=== PATIENT | female | born 1970 | race African-American/Black ===

== ENCOUNTER 2018-06-17 21:42 | Emergency (ER) | payer OTHER ==
[~2018-06-17] VITALS: Ht 149.9 cm; Wt 88.9 kg
[~2018-06-17 21:42] MED LIST: APAP500 PO; COLACE 100 MG100 MG PO; DERMOPLAST SPRA56 ML; HYDROCORTISONE; IBUPROFEN 800800 M1 PO; IBUPROFEN IB200 MG; IRON325 PO; LANOLIN; PRENATAL PO; TUCKS MEDICATE1 EAC1; TUSSIONEX PENN473 ML PO
[2018-06-17 23:48] VITALS: BP 116/52
== END 2018-06-17 23:48 | disposition home or self-care (01) ==
LOC: ER 21:42
DX: R51 Headache (principal); Z98.890 Other specified postprocedural states

== ENCOUNTER 2019-04-01 21:02 | Emergency (ER) | payer OTHER ==
[~2019-04-01] VITALS: Ht 152.4 cm; Wt 88.9 kg
[2019-04-01] MEDS ORDERED: NORETHIND-ETH1 EACH PO (21:51)
[2019-04-01 22:32] LABS: ABSOLUTE NEUTROPHILS 2.2 thou/uL (1.4-8.2); BASOPHILS 0.9 % (0.0-2.0); EOSINOPHILS 2.4 % (0.0-3.0); HEMATOCRIT 35.8 % (37.0-47.0); HEMOGLOBIN 11.6 gm/dL (12.0-15.0); LYMPHOCYTES 44.7 % (24.0-44.0); MCH 27.5 pg (26.0-34.0); MCHC 32.3 g/dL (28.0-37.0); MCV 85.3 fL (80.0-100.0); PLATELET COUNT 220 thou/uL (150-400); RDW 13.8 % (10.5-14.5); WBC 4.7 thou/uL (4.0-11.0)
[2019-04-01 22:41] LABS: CALCIUM 8.2 mg/dL (8.5-10.1); CREATININE 0.8 mg/dL (0.6-1.0); POTASSIUM 3.9 mmol/L (3.5-5.1)
[2019-04-01 22:44] LABS: URINE BILIRUBIN NEGATIVE (Negative); URINE BLOOD 2+ (Negative); URINE CLARITY CLEAR; URINE COLOR YELLOW; URINE GLUCOSE-RANDOM* NEGATIVE (Negative); URINE KETONES NEGATIVE (Negative); URINE LEUKOCYTES-REFLEX NEGATIVE (Negative); URINE NITRITE-REFLEX NEGATIVE (Negative); URINE PROTEIN (DIPSTICK) NEGATIVE (Negative); URINE UROBILINOGEN 0.2 E.U./dl (0.2-1.0)
[2019-04-01 22:47] LABS: ALBUMIN 3.2 g/dL (3.4-5.0); TOTAL BILIRUBIN 0.2 mg/dL (<0.1-1.0); TOTAL PROTEIN 6.7 g/dL (6.4-8.2)
[2019-04-01 23:25] LABS: BACTERIA-REFLEX None Seen /HPF (None Seen); CASTS None Seen /LPF (None Seen); CRYSTALS None Seen /LPF (None Seen); MUCUS None Seen strn/LPF (None Seen); SQUAMOUS None Seen /LPF (0-3); URINE RBC 0-2 Rare /HPF (0-2); URINE WBC-REFLEX None Seen /HPF (0-5)
[2019-04-02] MEDS ORDERED: BENTYL 10 MG CA10 M1 PO (00:53)
[2019-04-02 01:07] VITALS: BP 121/72
== END 2019-04-02 01:08 | disposition home or self-care (01) ==
LOC: ER 21:02
PROVIDERS: Emergency Medicine Emergency Medical Services
DX: R10.31 Right lower quadrant pain (principal); R10.32 Left lower quadrant pain; Z90.10 Acquired absence of unspecified breast and nipple

== ENCOUNTER 2019-06-18 12:09 | Emergency (ER) | payer OTHER ==
[~2019-06-18] VITALS: Ht 152.4 cm; Wt 89.8 kg
[~2019-06-18 12:09] MED LIST changes: +BENTYL 10 MG CA10 M1 PO; +NORETHIND-ETH1 EACH PO
[2019-06-18 12:51] LABS: EOSINOPHILS 1.9 % (0.0-3.0); HEMATOCRIT 43.1 % (37.0-47.0); HEMOGLOBIN 14.7 gm/dL (12.0-15.0); LYMPHOCYTES 33.7 % (24.0-44.0); MCH 28.5 pg (26.0-34.0); MCV 83.8 fL (80.0-100.0); MONOCYTES 5.2 % (1.0-8.0); PLATELET COUNT 270 thou/uL (150-400); POLYS 58.2 % (36.0-66.0); RBC 5.14 mil/uL (4.20-5.00); RDW 13.6 % (10.5-14.5); WBC 5.2 thou/uL (4.0-11.0)
[2019-06-18 12:58] LABS: CALCIUM 9.3 mg/dL (8.5-10.1); POTASSIUM 3.7 mmol/L (3.5-5.1)
[2019-06-18 13:06] LABS: ALBUMIN 3.7 g/dL (3.4-5.0); TOTAL BILIRUBIN 0.4 mg/dL (<0.1-1.0); TOTAL PROTEIN 7.8 g/dL (6.4-8.2)
[2019-06-18 14:04] LABS: URINE BILIRUBIN NEGATIVE (Negative); URINE BLOOD TRACE (Negative); URINE CLARITY CLEAR; URINE COLOR YELLOW; URINE GLUCOSE-RANDOM* NEGATIVE (Negative); URINE KETONES NEGATIVE (Negative); URINE LEUKOCYTES-REFLEX NEGATIVE (Negative); URINE NITRITE-REFLEX NEGATIVE (Negative); URINE PROTEIN (DIPSTICK) NEGATIVE (Negative); URINE SPECIFIC GRAVITY 1.015 (1.005-1.035); URINE UROBILINOGEN 0.2 E.U./dl (0.2-1.0)
[2019-06-18] MEDS ORDERED: NORCO 5-325 TA1 EAC1 PO (14:08)
[2019-06-18 15:03] VITALS: BP 127/52
== END 2019-06-18 15:15 | disposition home or self-care (01) ==
LOC: ER 12:09
PROVIDERS: Emergency Medicine Emergency Medical Services
DX: R10.31 Right lower quadrant pain (principal); R10.32 Left lower quadrant pain; Z20.828 Contact with and (suspected) exposure to other viral communicable diseases; Z79.899 Other long term (current) drug therapy

== ENCOUNTER 2019-10-13 19:27 | Emergency (ER) | payer OTHER ==
[~2019-10-13] VITALS: Ht 149.9 cm; Wt 93.4 kg
[~2019-10-13 19:27] MED LIST changes: +NORCO 5-325 TA1 EAC1 PO
[2019-10-13 20:05] LABS: ABSOLUTE NEUTROPHILS 2.4 thou/uL (1.4-8.2); BASOPHILS 0.1 % (0.0-2.0); EOSINOPHILS 1.4 % (0.0-3.0); HEMATOCRIT 35.5 % (37.0-47.0); HEMOGLOBIN 11.9 gm/dL (12.0-15.0); MCH 28.6 pg (26.0-34.0); MCHC 33.5 g/dL (28.0-37.0); MCV 85.3 fL (80.0-100.0); MONOCYTES 8.7 % (1.0-8.0); PLATELET COUNT 248 thou/uL (150-400); POLYS 48.8 % (36.0-66.0); RBC 4.16 mil/uL (4.20-5.00); RDW 13.4 % (10.5-14.5); WBC 4.9 thou/uL (4.0-11.0)
[2019-10-13 20:27] LABS: ANION GAP 7 mmol/L (7-16); BUN 18 mg/dL (7-18); CALCIUM 8.6 mg/dL (8.5-10.1); CHLORIDE 104 mmol/L (98-107); CO2 26 mmol/L (21-32); GLUCOSE 90 mg/dL (74-106); POTASSIUM 4.3 mmol/L (3.5-5.1); SODIUM 137 mmol/L (136-145)
[2019-10-13 20:35] LABS: TROPONIN-I <0.06 ng/mL (<0.06)
[2019-10-13 21:23] VITALS: BP 131/83
--- NOTE | 2019-10-16 08:08 | EKG ---
[facility] [place] [address] ELECTROCARDIOGRAM REPORT Name: JO-ANN AMANDA Room #: 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: [facility] : 1970 Requested By: Venu Roa Order Number: [id number] MD: Bryce Gamboa Measurements Intervals [place] Rate: 85 P: -36 AR: 126 QRS: 15 QRSD: 90 T: 34 QT: 354 QTc: 421 Interpretive Statements Sinus rhythm Borderline T abnormalities, anterior leads Baseline wander in lead(s) II,III,aVF,V6 Compared to ECG 02/08/2016 19:31:20 No significant change was found Electronically Signed On 10-16-2019 8:08:30 CDT by Bryce Gamboa [email or web address] <ELECTRONICALLY SIGNED> By: Bryce Gamboa MD, [facility] 10/16/19807 34 34 Bryce Gamboa MD, FAC /EPI
== END 2019-10-13 21:28 | disposition home or self-care (01) ==
LOC: ER 19:27
PROVIDERS: Emergency Medicine
DX: S29.011A Strain of muscle and tendon of front wall of thorax, initial encounter (principal); E66.9 Obesity, unspecified; Z79.899 Other long term (current) drug therapy; Z90.89 Acquired absence of other organs; X50.0XXA Overexertion from strenuous movement or load, initial encounter; Y93.89 Activity, other specified; Y92.69 Other specified industrial and construction area as the place of occurrence of the external cause; Y99.9 Unspecified external cause status

== ENCOUNTER 2019-10-15 00:06 | Emergency (ER) | payer OTHER ==
[~2019-10-15] VITALS: Ht 170.2 cm; Wt 93.4 kg
[2019-10-15 00:45] LABS: ABSOLUTE NEUTROPHILS 2.5 thou/uL (1.4-8.2); EOSINOPHILS 1.9 % (0.0-3.0); HEMATOCRIT 36.2 % (37.0-47.0); HEMOGLOBIN 12.1 gm/dL (12.0-15.0); LYMPHOCYTES 37.1 % (24.0-44.0); MCH 28.6 pg (26.0-34.0); MCHC 33.5 g/dL (28.0-37.0); MCV 85.5 fL (80.0-100.0); MONOCYTES 6.8 % (1.0-8.0); PLATELET COUNT 257 thou/uL (150-400); POLYS 53.2 % (36.0-66.0); RBC 4.24 mil/uL (4.20-5.00); RDW 13.8 % (10.5-14.5); WBC 4.7 thou/uL (4.0-11.0)
[2019-10-15 00:56] LABS: ANION GAP 9 mmol/L (7-16); BUN 15 mg/dL (7-18); CALCIUM 8.5 mg/dL (8.5-10.1); CHLORIDE 107 mmol/L (98-107); CO2 25 mmol/L (21-32); CREATININE 1.2 mg/dL (0.6-1.0); GLUCOSE 126 mg/dL (74-106); POTASSIUM 4.2 mmol/L (3.5-5.1); SODIUM 141 mmol/L (136-145)
[2019-10-15 01:05] LABS: TROPONIN-I <0.06 ng/mL (<0.06)
[2019-10-15 04:00] VITALS: BP 129/84
--- NOTE | 2019-10-16 08:37 | EKG ---
[facility] [place] [address] ELECTROCARDIOGRAM REPORT Name: JO-ANN AMANDA Room #: 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
== END 2019-10-15 04:05 | disposition home or self-care (01) ==
LOC: ER 00:06
PROVIDERS: Emergency Medicine
DX: R42 Dizziness and giddiness (principal); R07.89 Other chest pain; Z79.899 Other long term (current) drug therapy